=== PATIENT | male | born 1995 | race Hispanic/Latino ===

== ENCOUNTER 2018-06-03 01:50 | Emergency (ER) | payer BC ==
--- NOTE | 2018-06-03 02:21 | ER ---
Nurse's Notes [facility] Name: Lukas Lyons Age: 22 yrs Sex: Male : 1995 Arrival Date: 06/03/2018 Time: 01:55 Bed 20 Private MD: Diagnosis: Cellulitis of left upper limb Presentation: 06/03 02:07 Presenting complaint: Patient states: he woke up early this morning and noticed he had bb pain and redness to his left biceps area which is painful and warm to touch. Transition of care: patient was not received from another setting of care. Onset of symptoms was June 03, 2018. Risk Assessment: Do you want to hurt yourself or someone else? Patient reports no desire to harm self or others. Initial Sepsis Screen: Does the patient meet any 2 criteria? No. Patient's initial sepsis screen is negative. Does the patient have a suspected source of infection? No. Patient's initial sepsis screen is negative. Care prior to arrival: None. 02:07 Method Of Arrival: Ambulatory bb 02:07 Acuity: ANA 5 bb Historical: - Allergies: 02:09 Sulfa (Sulfonamide Antibiotics); bb - Home Meds: 02:09 None [Active]; bb - PMHx: 02:09 Anxiety; enlarged aorta; Hypertension; bb - PSHx: 02:09 Knee surgery; Tonsillectomy; bb - Immunization history:: Adult Immunizations up to date. - Social history:: Smoking status: Patient/guardian denies using tobacco, Patient uses alcohol, occasionally. - Ebola Screening: : No symptoms or risks identified at this time. Screenin:10 Abuse screen: Denies threats or abuse. Denies injuries from another. Nutritional cc3 screening: No deficits noted. Tuberculosis screening: No symptoms or risk factors identified. Fall Risk Ambulatory Aid- None/Bed Rest/Nurse Assist (0 pts). Gait- Normal/Bed Rest/Wheelchair (0 pts) Mental Status- Oriented to own ability (0 pts). Assessment: 02:10 General: Appears in no apparent distress. comfortable, Behavior is calm, cooperative, cc3 appropriate for age. Pain: Complains of pain in left biceps area Quality of pain is described as aching, Pain began since yesterday morning. Neuro: Level of Consciousness is awake, alert, obeys commands, Oriented to person, place, time, situation, Appropriate for age. Cardiovascular: Denies chest pain. Respiratory: Airway is patent Respiratory effort is even, unlabored, Respiratory pattern is regular, symmetrical. GI: Abdomen is round obese. : No signs and/or symptoms were reported regarding the genitourinary system. EENT: No signs and/or symptoms were reported regarding the EENT system. Derm: redness and swelling on the left biceps area. Musculoskeletal: Reports pain in left biceps area since yesterday morning. 02:35 Reassessment: Patient appears in no apparent distress at this time. Patient and/or cc3 family updated on plan of care and expected duration. Pain level reassessed. Patient is alert, oriented x 3, equal unlabored respirations, skin warm/dry/pink. Patient discharged home by Aj Salvador with prescription given. No IV cannula in situ. Patient left ER vitally stable and ambulatory with his family. Vital Signs: 02:09 BP 141 / 56; Pulse 84; Resp 16 S; Temp 99.1(O); Pulse Ox 97% on R/A; Weight 172.37 kg bb (R); Height 6 ft. 0 in. (182.88 cm) (R); Pain 3/10; 02:09 Body Mass Index 51.54 (172.37 kg, 182.88 cm) bb ED Course: 01:55 Patient arrived in ED. am2 01:58 Aj Salvador PA is PHCP. cp 01:58 Aj Holden MD is Attending Physician. cp 02:08 Triage completed. bb 02:09 Arm band placed on Patient placed in an exam room, on a stretcher, on pulse oximetry. bb Family accompanied patient. 02:10 Patient has correct armband on for positive identification. Bed in low position. Call cc3 light in reach. Side rails up X 1. 02:35 No provider procedures requiring assistance completed. Patient did not have IV access cc3 during this emergency room visit. Administered Medications: 02:28 Drug: KeFLEX 500 mg Route: PO; cc3 02:35 Follow up: Response: No adverse reaction cc3 Outcome: 02:20 Discharge ordered by . cp 02:35 Discharged to home ambulatory. cc3 02:35 Condition: stable 02:35 Discharge instructions given to patient, family, Instructed on discharge instructions, follow up and referral plans. medication usage, Demonstrated understanding of instructions, follow-up care, medications, Prescriptions given X 1. 02:37 Patient left the ED. cc3 Signatures: Dayan Bowie RN RN Aj La PA PA cp Moreno, Amanda am2 Cordel, Charlene cc3
--- NOTE | 2018-06-03 02:21 | EDPHYS ---
Physician Documentation [facility] Name: Lukas Lyons Age: 22 yrs Sex: Male : 1995 Arrival Date: 06/03/2018 Time: 01:55 Bed 20 Private MD: ED Physician Aj Holden HPI: 06/03 02:12 This 22 yrs old Male presents to ER via Ambulatory with complaints of Spider cp Bite. 02:13 The patient or guardian complains of pain, that is acute, swelling, tenderness, cp erythema. The complaints affect the medial aspect left bicep. Context: resulted from possible insect bite. Onset: The symptoms/episode began/occurred this morning. Treatment prior to arrival includes: no previous treatment. Associated signs and symptoms: Pertinent positives: erythema, warmth, Pertinent negatives: fever, drainage. Severity of symptoms: in the emergency department the symptoms are unchanged, despite home interventions. Historical: - Allergies: 02:09 Sulfa (Sulfonamide Antibiotics); bb - Home Meds: 02:09 None [Active]; bb - PMHx: 02:09 Anxiety; enlarged aorta; Hypertension; bb - PSHx: 02:09 Knee surgery; Tonsillectomy; bb - Immunization history:: Adult Immunizations up to date. - Social history:: Smoking status: Patient/guardian denies using tobacco, Patient uses alcohol, occasionally. - Ebola Screening: : No symptoms or risks identified at this time. ROS: 02:14 Eyes: Negative for injury, pain, redness, and discharge. cp 02:14 Constitutional: Negative for body aches, chills, fever, poor PO intake. 02:14 ENT: Negative for drainage from ear(s), ear pain, sore throat, difficulty swallowing, difficulty handling secretions. 02:14 Cardiovascular: Negative for chest pain, palpitations. 02:14 Respiratory: Negative for cough, shortness of breath, wheezing. 02:14 Abdomen/GI: Negative for abdominal pain. 02:14 Skin: Positive for erythema, of the medial aspect left bicep. 02:14 All other systems are negative. Exam: 02:16 Head/Face: Normocephalic, atraumatic. cp 02:16 Constitutional: The patient appears in no acute distress, alert, awake, non-toxic, well developed, well nourished, obese. 02:16 Eyes: Periorbital structures: appear normal, Conjunctiva: normal, no exudate, no injection, Lids and lashes: appear normal, bilaterally. 02:16 ENT: External ear(s): are unremarkable, Nose: is normal, Mouth: Lips: moist, Oral mucosa: moist, Posterior pharynx: Airway: no evidence of obstruction, patent. 02:16 Chest/axilla: Inspection: normal. 02:16 Cardiovascular: Rate: normal, Rhythm: regular. 02:16 Respiratory: the patient does not display signs of respiratory distress, Respirations: normal, no use of accessory muscles, no retractions, no splinting, no tachypnea, Breath sounds: are clear throughout. 02:16 Abdomen/GI: Inspection: obese 02:16 Skin: cellulitis, that is mild, well demarcated, on the medial aspect left bicep. Vital Signs: 02:09 BP 141 / 56; Pulse 84; Resp 16 S; Temp 99.1(O); Pulse Ox 97% on R/A; Weight 172.37 kg bb (R); Height 6 ft. 0 in. (182.88 cm) (R); Pain 3/10; 02:09 Body Mass Index 51.54 (172.37 kg, 182.88 cm) bb MDM: 01:58 Patient medically screened. cp 02:19 Differential diagnosis: cellulitis, abscess, insect bite. Data reviewed: vital signs, cp nurses notes, and as a result, I will discharge patient. Administered Medications: 02:28 Drug: KeFLEX 500 mg Route: PO; cc3 02:35 Follow up: Response: No adverse reaction cc3 Disposition: 06:46 Co-signature as Attending Physician, Aj Holden MD I agree with the assessment and yash plan of care. Disposition: 06/03/18 02:20 Discharged to Home. Impression: Cellulitis of left upper limb. - Condition is Stable. - Discharge Instructions: Cellulitis, Adult. - Prescriptions for Keflex 500 mg Oral Capsule - take 1 capsule by ORAL route every 6 hours for 10 days; 40 capsule. - Medication Reconciliation Form, Thank You Letter, Antibiotic Education, Prescription Opioid Use, Work release form form. - Follow up: Private Physician; When: 2 - 3 days; Reason: Recheck today's complaints. - Problem is new. - Symptoms are unchanged. Signatures: Aj Holden MD MD cha Ballard, Brenda, RN RN bb Aj Salvador PA PA cp Eden Bills cc3 Corrections: (The following items were deleted from the chart) 02:37 02:20 06/03/2018 02:20 Discharged to Home. Impression: Cellulitis of left upper limb. cc3 Condition is Stable. Forms are Medication Reconciliation Form, Thank You Letter, Antibiotic Education, Prescription Opioid Use. Follow up: Private Physician; When: 2 - 3 days; Reason: Recheck today's complaints. Problem is new. Symptoms are unchanged. cp
[2018-06-03] MEDS ORDERED: CEPHALEXIN 250 MG CAP ONE (02:32)
== END 2018-06-03 02:37 | disposition home or self-care (01) ==
LOC: ER 01:50
DX: L03.114 Cellulitis of left upper limb (principal); I10 Essential (primary) hypertension; Z88.2 Allergy status to sulfonamides
CPT/HCPCS: 99283

== ENCOUNTER 2018-10-31 15:11 | Emergency (ER) | payer BC, SELFPAY ==
[2018-10-31] MEDS ORDERED: NA CHLORIDE 0.9% 1,000 ML ONE ×2 (16:13→18:13)
[2018-10-31 16:29] LABS: Absolute Lymphocytes (CBC) 0.9 K/uL (0.7-4.9); Absolute Monocytes 0.3 K/uL (0.1-1.3); Basophils % 0.8 % (0-1.3); Eosinophils % 0.2 % (0-4.4); Hematocrit 43.5 % (39.6-49.0); Lymphocytes % 21.8 % (15.3-44.8); MPV 9.3 fL (7.6-11.3); Monocytes % 7.7 % (3.3-12.3); RBC Red Blood Cell Count 5.38 M/uL (4.33-5.43)
[2018-10-31 16:54] LABS: ALT/SGPT 159 U/L (12-78); AST/SGOT 66 U/L (15-37); Albumin 3.6 g/dL (3.4-5.0); Alkaline Phosphatase 60 U/L (45-117); BUN Blood Urea Nitrogen 10 mg/dL (7-18); Bicarbonate 26 mmol/L (21-32); Bilirubin Direct 0.3 mg/dL (0-0.2); Bilirubin Total 0.8 mg/dL (0.2-1.0); Glucose Level 118 mg/dL (74-106); Lipase 135 U/L (73-393); Potassium 3.6 mmol/L (3.5-5.1); Protein, Total 7.7 g/dL (6.4-8.2); Sodium Level 136 mmol/L (136-145)
[2018-10-31 18:30] LABS: Urine Blood NEGATIVE (NEG); Urine Glucose TRACE (NEG); Urine Protein 2+ (NEG); Urine pH 6.5 (5.0-7.0)
--- NOTE | 2018-10-31 18:54 | EDPHYS ---
Physician Documentation [facility] Name: Lukas Lyons Age: 23 yrs Sex: Male : 1995 Arrival Date: 10/31/2018 Time: 15:22 Bed 13 Private MD: ED Physician Aj Holden HPI: 10/31 16:53 This 23 yrs old Male presents to ER via Ambulatory with complaints of Vomiting.jr8 16:53 The patient presents to the emergency department with nausea, vomiting, abdominal pain. jr8 Onset: The symptoms/episode began/occurred gradually, 1 week(s) ago. Possible causes: unknown. The symptoms are aggravated by food , The symptoms are alleviated by nothing. Associated signs and symptoms: Pertinent positives: fever. Severity of symptoms: At their worst the symptoms were mild in the emergency department the symptoms are unchanged. The patient has not experienced similar symptoms in the past. The patient has not recently seen a physician. Patient stated that he has had fevers on/off for the past week or so. Turning into abdominal cramping and n/v without relief. Had sore throat a few days ago but has since gone away. Denies any other symptoms . Historical: - Allergies: 15:48 Sulfa (Sulfonamide Antibiotics); ph - PMHx: 15:48 Anxiety; enlarged aorta; Hypertension; ph - PSHx: 15:48 Knee surgery; Tonsillectomy; ph - Immunization history:: Adult Immunizations unknown. - Social history:: Smoking status: Patient/guardian denies using tobacco. - Ebola Screening: : No symptoms or risks identified at this time. ROS: 16:53 Eyes: Negative for injury, pain, redness, and discharge, ENT: Negative for injury and jr8 discharge. Positive for sore throat Neck: Negative for injury, pain, and swelling, Cardiovascular: Negative for chest pain, palpitations, and edema, Respiratory: Negative for shortness of breath, cough, wheezing, and pleuritic chest pain, Back: Negative for injury and pain, MS/Extremity: Negative for injury and deformity, Skin: Negative for injury, rash, and discoloration, Neuro: Negative for headache, weakness, numbness, tingling, and seizure. 16:53 Abdomen/GI: Positive for nausea and vomiting, diarrhea, abdominal cramps, Negative for abdominal distension, anorexia, dysphagia, hematemesis, black/tarry stool, rectal pain, rectal bleeding, bowel incontinence, flatulence. Exam: 16:53 Eyes: Pupils equal round and reactive to light, extra-ocular motions intact. Lids and jr8 lashes normal. Conjunctiva and sclera are non-icteric and not injected. Cornea within normal limits. Periorbital areas with no swelling, redness, or edema. ENT: Nares patent. No nasal discharge, no septal abnormalities noted. Tympanic membranes are normal and external auditory canals are clear. Oropharynx with no redness, swelling, or masses, exudates, or evidence of obstruction, uvula midline. Mucous membranes moist. Neck: Trachea midline, no thyromegaly or masses palpated, and no cervical lymphadenopathy. Supple, full range of motion without nuchal rigidity, or vertebral point tenderness. No Meningismus. Cardiovascular: Sinus tachycardia with a normal S1 and S2. No gallops, murmurs, or rubs. Normal PMI, no JVD. No pulse deficits. Respiratory: Lungs have equal breath sounds bilaterally, clear to auscultation and percussion. No rales, rhonchi or wheezes noted. No increased work of breathing, no retractions or nasal flaring. Abdomen/GI: Soft, non-tender, with normal bowel sounds. No distension or tympany. No guarding or rebound. No evidence of tenderness throughout. Back: No spinal tenderness. No costovertebral tenderness. Full range of motion. Skin: Warm, dry with normal turgor. Normal color with no rashes, no lesions, and no evidence of cellulitis. MS/ Extremity: Pulses equal, no cyanosis. Neurovascular intact. Full, normal range of motion. Neuro: Awake and alert, GCS 15, oriented to person, place, time, and situation. Cranial nerves II-XII grossly intact. Motor strength 5/5 in all extremities. Sensory grossly intact. Cerebellar exam normal. Normal gait. Vital Signs: 15:47 BP 122 / 89; Pulse 129; Resp 22; Temp 97.9(TE); Pulse Ox 97% on R/A; Weight 175.99 kg; ph Height 6 ft. 0 in. (182.88 cm); 16:20 BP 116 / 70; Pulse 115; Resp 17; Pulse Ox 98% on R/A; tw2 17:05 BP 129 / 69; Pulse 115; Resp 17; Pulse Ox 97% on R/A; tw2 17:57 BP 121 / 63; Pulse 118; Resp 17; Pulse Ox 97% on R/A; tw2 19:11 BP 124 / 75; Pulse 69; Resp 19; Pulse Ox 97% on R/A; tw2 15:47 Body Mass Index 52.62 (175.99 kg, 182.88 cm) ph MDM: 15:38 Patient medically screened. jr8 18:51 Data reviewed: vital signs, nurses notes, lab test result(s), radiologic studies, CT jr scan. Data interpreted: Pulse oximetry: on room air is 97 %. Interpretation: normal. Counseling: I had a detailed discussion with the patient and/or guardian regarding: the historical points, exam findings, and any diagnostic results supporting the discharge/admit diagnosis, lab results, the need for outpatient follow up, a family practitioner, to return to the emergency department if symptoms worsen or persist or if there are any questions or concerns that arise at home. Response to treatment: the patient's symptoms have markedly improved after treatment, patient is well hydrated. ED course: Reexamined patient. Patient feeling much better. Still without subjective or objective abdominal findings including pain. Will send home on antibiotics if diarrhea persists after the next couple of days. S/S given to patient to watch for. Would come back if present. 10/31 15:57 Order name: Basic Metabolic Panel [facility] 10/31 15:57 Order name: CBC with Diff [facility] 10/31 15:57 Order name: Creatinine for Radiology [facility] 10/31 15:57 Order name: Hepatic Function; Complete Time: 16:56 [facility] 10/31 15:57 Order name: Lipase; Complete Time: 16:56 [facility] 10/31 15:57 Order name: Strep; Complete Time: 16:42 [facility] 10/31 15:57 Order name: Influenza Screen (a \T\ B); Complete Time: 16:56 [facility] 10/31 15:57 Order name: Basic Metabolic Panel; Complete Time: 16:56 [facility] 10/31 15:57 Order name: CBC with Automated Diff; Complete Time: 16:42 [facility] 10/31 15:57 Order name: Creatinine (Radiology Only); Complete Time: 16:56 [facility] 10/31 16:42 Order name: Throat Culture [facility] 10/31 17:51 Order name: Urine Dipstick--Ancillary (enter results); Complete Time: 18:51 bd 10/31 15:57 Order name: IV Saline Lock; Complete Time: 16:20 8 10/31 15:57 Order name: Labs collected and sent; Complete Time: 16:20 8 10/31 15:57 Order name: Urine Dipstick-Ancillary (obtain specimen); Complete Time: 17:56 jr Administered Medications: 16:15 Drug: NS 0.9% 1000 ml Route: IV; Rate: 1000 ml; Site: left antecubital; tw2 18:00 Follow up: Response: No adverse reaction; IV Status: Completed infusion; IV Intake: tw2 1000ml 18:00 Drug: NS 0.9% 1000 ml Route: IV; Rate: 1 bolus; Site: left antecubital; tw2 19:27 Follow up: Response: No adverse reaction; IV Status: Completed infusion; IV Intake: tw2 1000ml Disposition: 10/31/18 18:53 Discharged to Home. Impression: Gastroenteritis, Dehydration. - Condition is Stable. - Discharge Instructions: Dehydration, Adult, Viral Gastroenteritis, Adult. - Prescriptions for Cipro 500 mg Oral Tablet - take 1 tablet by ORAL route every 12 hours for 10 days; 20 tablet. Flagyl 500 mg Oral Tablet - take 1 tablet by ORAL route every 6 hours for 10 days; 40 tablet. Zofran 4 mg Oral Tablet - take 1 tablet by ORAL route every 8 hours As needed; 20 tablet. - Medication Reconciliation Form, Thank You Letter, Antibiotic Education, Prescription Opioid Use, Work release form, Family Work Release form. - Follow up: Private Physician; When: 2 - 3 days; Reason: Recheck today's complaints, Continuance of care, Re-evaluation by your physician. - Problem is new. - Symptoms have improved. Signatures: Dispatcher [employer] EDMS Mohamud Austin PA PA jr8 Nuha Neal, RN RN Georgette Strong RN RN tw2 Corrections: (The following items were deleted from the chart) 19:22 18:53 10/31/2018 18:53 Discharged to Home. Impression: Gastroenteritis; Dehydration. tw2 Condition is Stable. Forms are Medication Reconciliation Form, Thank You Letter, Antibiotic Education, Prescription Opioid Use. Follow up: Private Physician; When: 2 - 3 days; Reason: Recheck today's complaints, Continuance of care, Re-evaluation by your physician. Problem is new. Symptoms have improved. jr8
--- NOTE | 2018-10-31 18:54 | ER ---
Nurse's Notes [facility] Name: Lukas Lyons Age: 23 yrs Sex: Male : 1995 Arrival Date: 10/31/2018 Time: 15:22 Bed 13 Private MD: Diagnosis: Gastroenteritis;Dehydration Presentation: 10/31 15:45 Presenting complaint: Patient states: N/V/D, fever, chills, and dizziness since Tue, ph states, " I've been trying to stay hydrated but my pee is still really dark.". Transition of care: patient was not received from another setting of care. Onset of symptoms was October 31, 2018. Risk Assessment: Do you want to hurt yourself or someone else? Patient reports no desire to harm self or others. Initial Sepsis Screen: Does the patient meet any 2 criteria? No. Patient's initial sepsis screen is negative. Does the patient have a suspected source of infection? No. Patient's initial sepsis screen is negative. Care prior to arrival: None. 15:45 Method Of Arrival: Ambulatory ph 15:45 Acuity: ANA 3 ph Historical: - Allergies: 15:48 Sulfa (Sulfonamide Antibiotics); ph - PMHx: 15:48 Anxiety; enlarged aorta; Hypertension; ph - PSHx: 15:48 Knee surgery; Tonsillectomy; ph - Immunization history:: Adult Immunizations unknown. - Social history:: Smoking status: Patient/guardian denies using tobacco. - Ebola Screening: : No symptoms or risks identified at this time. Screenin:22 Abuse screen: Denies threats or abuse. Nutritional screening: No deficits noted. tw2 Tuberculosis screening: No symptoms or risk factors identified. Fall Risk None identified. Assessment: 15:37 General: Appears in no apparent distress. obese, Behavior is calm, cooperative, tw2 appropriate for age. Pain: Complains of pain in abdomen. Neuro: Level of Consciousness is awake, alert, obeys commands, Oriented to person, place, time, situation. Cardiovascular: Heart tones S1 S2 Patient's skin is warm and dry. Respiratory: Airway is patent Respiratory effort is even, unlabored, Respiratory pattern is regular, symmetrical, Breath sounds are clear bilaterally. GI: Abdomen is round non-distended, obese, Bowel sounds present X 4 quads. Reports lower abdominal pain, upper abdominal pain. : No signs and/or symptoms were reported regarding the genitourinary system. EENT: No signs and/or symptoms were reported regarding the EENT system. EENT: No signs and/or symptoms were reported regarding the EENT system. EENT: No signs and/or symptoms were reported regarding the EENT system. Derm: No signs and/or symptoms reported regarding the dermatologic system. Musculoskeletal: Circulation, motion, and sensation intact. Range of motion: intact in all extremities. 16:20 Reassessment: Patient appears in no apparent distress at this time. No changes from tw2 previously documented assessment. Patient and/or family updated on plan of care and expected duration. Pain level reassessed. Patient is alert, oriented x 3, equal unlabored respirations, skin warm/dry/pink. 17:05 Reassessment: Patient appears in no apparent distress at this time. No changes from tw2 previously documented assessment. Patient and/or family updated on plan of care and expected duration. Pain level reassessed. Patient is alert, oriented x 3, equal unlabored respirations, skin warm/dry/pink. 17:58 Reassessment: Patient appears in no apparent distress at this time. No changes from tw2 previously documented assessment. Patient and/or family updated on plan of care and expected duration. Pain level reassessed. Patient is alert, oriented x 3, equal unlabored respirations, skin warm/dry/pink. 19:11 Reassessment: Patient appears in no apparent distress at this time. No changes from tw2 previously documented assessment. Patient and/or family updated on plan of care and expected duration. Pain level reassessed. Patient is alert, oriented x 3, equal unlabored respirations, skin warm/dry/pink. 19:22 Reassessment: Patient appears in no apparent distress at this time. No changes from tw2 previously documented assessment. Patient and/or family updated on plan of care and expected duration. Pain level reassessed. Patient is alert, oriented x 3, equal unlabored respirations, skin warm/dry/pink. Patient states feeling better. Vital Signs: 15:47 BP 122 / 89; Pulse 129; Resp 22; Temp 97.9(TE); Pulse Ox 97% on R/A; Weight 175.99 kg; ph Height 6 ft. 0 in. (182.88 cm); 16:20 BP 116 / 70; Pulse 115; Resp 17; Pulse Ox 98% on R/A; tw2 17:05 BP 129 / 69; Pulse 115; Resp 17; Pulse Ox 97% on R/A; tw2 17:57 BP 121 / 63; Pulse 118; Resp 17; Pulse Ox 97% on R/A; tw2 19:11 BP 124 / 75; Pulse 69; Resp 19; Pulse Ox 97% on R/A; tw2 15:47 Body Mass Index 52.62 (175.99 kg, 182.88 cm) ph ED Course: 15:22 Patient arrived in ED. mr 15:37 Bed in low position. Call light in reach. Side rails up X 1. Adult w/ patient. Pulse ox tw2 on. NIBP on. 15:38 Mohamud Austin PA is PHCP. jr8 15:38 Aj Holden MD is Attending Physician. jr8 15:47 Triage completed. ph 15:48 Arm band placed on. ph 15:57 Georgette Strong, RN is Primary Nurse. tw2 16:10 Inserted saline lock: 22 gauge in left antecubital area, using aseptic technique. Blood tw2 collected. 16:20 Influenza Screen (a \\T\\ B) Sent. tw2 16:20 Strep Sent. tw2 18:50 Urine collected: clean catch specimen, prosper colored. 5 19:08 Awaiting: completion of IV fluids prior to discharge. tw2 19:22 No provider procedures requiring assistance completed. IV discontinued, intact, tw2 bleeding controlled, No redness/swelling at site. Pressure dressing applied. Administered Medications: 16:15 Drug: NS 0.9% 1000 ml Route: IV; Rate: 1000 ml; Site: left antecubital; tw2 18:00 Follow up: Response: No adverse reaction; IV Status: Completed infusion; IV Intake: tw2 1000ml 18:00 Drug: NS 0.9% 1000 ml Route: IV; Rate: 1 bolus; Site: left antecubital; tw2 19:27 Follow up: Response: No adverse reaction; IV Status: Completed infusion; IV Intake: tw2 1000ml Intake: 18:00 IV: 1000ml; Total: 1000ml. tw2 19:27 IV: 1000ml; Total: 2000ml. tw2 Outcome: 18:53 Discharge ordered by . jr8 19:22 Patient left the ED. tw2 19:22 Discharged to home ambulatory, with significant other. tw2 19:22 Condition: stable 19:22 Discharge instructions given to patient, significant other, Instructed on discharge instructions, follow up and referral plans. medication usage, Demonstrated understanding of instructions, follow-up care, medications, Prescriptions given X 3. Signatures: Juventino Smitha Austin, Mohamud, NAMITA BREAUX jr8 Nuha Neal RN RN Georgette Strong RN RN 2 Carol Shen [facility] Corrections: (The following items were deleted from the chart) 06:15 NS 0.9% 1000 ml IV at 1000 ml in left antecubital tw2 tw2 : 17:56 Response: No adverse reaction; IV Status: Completed infusion; IV Intake: 1000ml tw2 tw2
== END 2018-10-31 19:22 | disposition home or self-care (01) ==
LOC: ER 15:11
DX: K52.9 Noninfective gastroenteritis and colitis, unspecified (principal); E86.0 Dehydration; I10 Essential (primary) hypertension; Z88.2 Allergy status to sulfonamides
CPT/HCPCS: 36415; 80048; 80076; 81003; 83690; 85025; 87070; 87081; 87804; 96360; 96361; 99284; J7030

== ENCOUNTER 2019-04-10 01:24 | Emergency (ER) | payer SELFPAY ==
--- NOTE | 2019-04-10 02:01 | ER ---
Nurse's Notes [facility] Name: Lukas Lyons Age: 23 yrs Sex: Male : 1995 Arrival Date: 04/10/2019 Time: 01:29 Bed 5 Private MD: Diagnosis: Person with feared health complaint in whom no diagnosis is made Presentation: 04/10 01:39 Presenting complaint: Patient states: burning sensation under left arm since noon ak1 yesterday. no redness noted during triage. Transition of care: patient was not received from another setting of care. Onset of symptoms was April 09, 2019. Risk Assessment: Do you want to hurt yourself or someone else? Patient reports no desire to harm self or others. Initial Sepsis Screen: Does the patient meet any 2 criteria? No. Patient's initial sepsis screen is negative. Does the patient have a suspected source of infection? No. Patient's initial sepsis screen is negative. Care prior to arrival: None. 01:39 Method Of Arrival: Ambulatory ak1 01:39 Acuity: ANA 4 ak1 Triage Assessment: 01:41 General: Appears in no apparent distress. Behavior is calm, cooperative. ak1 Historical: - Allergies: 01:41 Sulfa (Sulfonamide Antibiotics); ak1 - Home Meds: 01:41 None [Active]; ak1 - PMHx: 01:41 Anxiety; enlarged aorta; Hypertension; ak1 - PSHx: 01:41 Knee surgery; Tonsillectomy; ak1 - Immunization history:: Adult Immunizations unknown. - Social history:: Smoking status: Patient/guardian denies using tobacco. - Ebola Screening: : No symptoms or risks identified at this time. Screenin:41 Abuse screen: Denies threats or abuse. Denies injuries from another. Nutritional ak1 screening: No deficits noted. Tuberculosis screening: No symptoms or risk factors identified. Fall Risk None identified. Assessment: 01:52 General: Appears in no apparent distress. Pain: Denies pain. Complains of pain in left ea bicep Quality of pain is described as tingling. Neuro: Level of Consciousness is awake, alert, obeys commands, Oriented to person, place, time, situation. Cardiovascular: Patient's skin is warm and dry. Respiratory: Airway is patent Respiratory effort is even, unlabored, Respiratory pattern is regular, symmetrical. : No signs and/or symptoms were reported regarding the genitourinary system. Derm: Skin is pink, warm \T\ dry. Musculoskeletal: Circulation, motion, and sensation intact. 02:20 Reassessment: Patient and/or family updated on plan of care and expected duration. Pain ea level reassessed. Patient is alert, oriented x 3, equal unlabored respirations, skin warm/dry/pink. Discharge instruction given to patient verbalized the understanding of instruction. Left ED ambulatory with friend. Pt tolerating well. Vital Signs: 01:41 BP 170 / 99; Pulse 100; Resp 18; Temp 98.2; Pulse Ox 99% on R/A; Weight 165.56 kg (R); ak1 Height 6 ft. 0 in. (182.88 cm) (R); Pain 4/10; 01:41 Body Mass Index 49.50 (165.56 kg, 182.88 cm) ak1 ED Course: 01:29 Patient arrived in ED. ag3 01:40 Triage completed. ak1 01:41 Arm band placed on Patient placed in an exam room, on a stretcher, on pulse oximetry, ak1 Patient notified of wait time. 01:42 Patient has correct armband on for positive identification. Bed in low position. Call ak1 light in reach. Side rails up X 1. Adult w/ patient. Pulse ox on. NIBP on. 01:52 Alvina Gupta RN is Primary Nurse. ea 01:53 [facility]ude[facility]. kb 01:53 Berlin Alegre MD is Attending Physician. kb 02:20 No provider procedures requiring assistance completed. Patient did not have IV access ea during this emergency room visit. Administered Medications: No medications were administered Outcome: 02:01 Discharge ordered by . kb 02:20 Discharged to home ambulatory, with friend. ea 02:20 Condition: stable 02:20 Discharge instructions given to patient, Instructed on discharge instructions, follow up and referral plans. Demonstrated understanding of instructions, follow-up care. 02:23 Patient left the ED. ea Signatures: Gabby Bermudez FNP-C FNP-Ckb Krenek, Amber, RN RN ak Alvina Gupta RN RN Maria Isabel Staples 3
--- NOTE | 2019-04-10 02:01 | EDPHYS ---
Physician Documentation [facility] Name: Lukas Lyons Age: 23 yrs Sex: Male : 1995 Arrival Date: 04/10/2019 Time: 01:29 Bed 5 Private MD: SHANNA Physician Berlin Alegre HPI: 04/10 02:06 This 23 yrs old Male presents to ER via Ambulatory with complaints of BURNING kb SENTATION TO ARM. 02:06 The patient or guardian complains of burning pain to left bicep. The complaints affect kb the left bicep. Context: The problem was sustained at home, resulted from unknown cause. Onset: The symptoms/episode began/occurred today. Treatment prior to arrival includes: no previous treatment. Modifying factors: The symptoms are alleviated by nothing. the symptoms are aggravated by nothing. Associated signs and symptoms: The patient has no apparent associated signs or symptoms. Severity of symptoms: At their worst the symptoms were very mild, in the emergency department the symptoms are unchanged. The patient has not experienced similar symptoms in the past. The patient has not recently seen a physician. Pt reports he has a burning pain to his left bicep. Reports he has been fishing every day for the past 5 days. States his friend got the bacteria from the water so he has an infection. Pt was concerned that the burning feeling was from the bacteria. No redness, swelling, warmth, discoloration. Historical: - Allergies: 01:41 Sulfa (Sulfonamide Antibiotics); ak1 - Home Meds: 01:41 None [Active]; ak1 - PMHx: 01:41 Anxiety; enlarged aorta; Hypertension; ak1 - PSHx: 01:41 Knee surgery; Tonsillectomy; ak1 - Immunization history:: Adult Immunizations unknown. - Social history:: Smoking status: Patient/guardian denies using tobacco. - Ebola Screening: : No symptoms or risks identified at this time. ROS: 02:03 Constitutional: Negative for fever, chills, and weight loss, Cardiovascular: Negative kb for chest pain, palpitations, and edema, Respiratory: Negative for shortness of breath, cough, wheezing, and pleuritic chest pain, Abdomen/GI: Negative for abdominal pain, nausea, vomiting, diarrhea, and constipation, Skin: Negative for injury, rash, and discoloration, Neuro: Negative for headache, weakness, numbness, tingling, and seizure. 02:03 MS/extremity: Positive for burning pain to bicep. Exam: 02:03 Constitutional: This is a well developed, well nourished patient who is awake, alert, kb and in no acute distress. Head/Face: Normocephalic, atraumatic. Chest/axilla: Normal chest wall appearance and motion. Nontender with no deformity. No lesions are appreciated. Cardiovascular: Regular rate and rhythm with a normal S1 and S2. No gallops, murmurs, or rubs. Normal PMI, no JVD. No pulse deficits. Respiratory: Lungs have equal breath sounds bilaterally, clear to auscultation and percussion. No rales, rhonchi or wheezes noted. No increased work of breathing, no retractions or nasal flaring. Abdomen/GI: Soft, non-tender, with normal bowel sounds. No distension or tympany. No guarding or rebound. No evidence of tenderness throughout. Skin: Warm, dry with normal turgor. Normal color with no rashes, no lesions, and no evidence of cellulitis. MS/ Extremity: Pulses equal, no cyanosis. Neurovascular intact. Full, normal range of motion. Neuro: Awake and alert, GCS 15, oriented to person, place, time, and situation. Cranial nerves II-XII grossly intact. Motor strength 5/5 in all extremities. Sensory grossly intact. Cerebellar exam normal. Normal gait. Vital Signs: 01:41 BP 170 / 99; Pulse 100; Resp 18; Temp 98.2; Pulse Ox 99% on R/A; Weight 165.56 kg (R); ak1 Height 6 ft. 0 in. (182.88 cm) (R); Pain 4/10; 01:41 Body Mass Index 49.50 (165.56 kg, 182.88 cm) ak1 MDM: 01:54 Patient medically screened. kb 02:01 Data reviewed: vital signs, nurses notes. Data interpreted: Pulse oximetry: on room air kb is 99 %. Interpretation: normal. Counseling: I had a detailed discussion with the patient and/or guardian regarding: the historical points, exam findings, and any diagnostic results supporting the discharge/admit diagnosis, the need for outpatient follow up, a family practitioner, to return to the emergency department if symptoms worsen or persist or if there are any questions or concerns that arise at home. Administered Medications: No medications were administered Disposition: 07:13 Co-signature as Attending Physician, Berlin Alegre MD Available for consultation at ps1 all times. . Disposition: 04/10/19 02:01 Discharged to Home. Impression: Person with feared health complaint in whom no diagnosis is made. - Condition is Stable. - Discharge Instructions: Musculoskeletal Pain. - Medication Reconciliation Form, Thank You Letter, Antibiotic Education, Prescription Opioid Use form. - Follow up: Emergency Department; When: As needed; Reason: Worsening of condition. Follow up: Private Physician; When: 2 - 3 days; Reason: Recheck today's complaints, Continuance of care, Re-evaluation by your physician. Signatures: Gabby Bermudez, TONI PRASAD-Brianna Soriano, RN RN ak1 Alvina Gupta RN RN Berlin Diaz MD MD ps1 Corrections: (The following items were deleted from the chart) 02:06 02:03 MS/extremity: Positive for burning pain to tricept , finn kb 02:23 02:01 04/10/2019 02:01 Discharged to Home. Impression: Person with feared health ea complaint in whom no diagnosis is made. Condition is Stable. Forms are Medication Reconciliation Form, Thank You Letter, Antibiotic Education, Prescription Opioid Use. Follow up: Emergency Department; When: As needed; Reason: Worsening of condition. Follow up: Private Physician; When: 2 - 3 days; Reason: Recheck today's complaints, Continuance of care, Re-evaluation by your physician. kb
== END 2019-04-10 02:23 | disposition home or self-care (01) ==
LOC: ER 01:24
DX: Z71.1 Person with feared health complaint in whom no diagnosis is made (principal); R20.8 Other disturbances of skin sensation; F41.9 Anxiety disorder, unspecified; I10 Essential (primary) hypertension; Z88.2 Allergy status to sulfonamides
CPT/HCPCS: 99283

== ENCOUNTER 2019-05-07 20:49 | Emergency (ER) | payer SELFPAY ==
[2019-05-07] MEDS ORDERED: ALPRAZOLAM 1 MG TABLET ONE (22:58)
--- NOTE | 2019-05-07 23:52 | ER ---
Nurse's Notes [facility] Name: Lukas Lyons Age: 23 yrs Sex: Male : 1995 Arrival Date: 05/07/2019 Time: 20:50 Bed 18 Private MD: Diagnosis: Panic disorder [episodic paroxysmal anxiety] without agoraphobia Presentation: 05/07 21:25 Presenting complaint: Patient states: "I've been having anxiety attacks since yesterday cc3 when my pet snake and I buried it. I've been feeling sick on and off on my stomach, but right now it doesn't ache that much with NRS of 2/10". Transition of care: patient was not received from another setting of care. Onset of symptoms was May 06, 2019. Risk Assessment: Do you want to hurt yourself or someone else? Patient reports no desire to harm self or others. Initial Sepsis Screen: Does the patient meet any 2 criteria? HR > 90 bpm. Does the patient have a suspected source of infection? No. Patient's initial sepsis screen is negative. Care prior to arrival: None. 21:25 Method Of Arrival: Ambulatory cc3 21:25 Acuity: ANA 3 cc3 Triage Assessment: 21:25 General: Appears in no apparent distress. uncomfortable, Behavior is cooperative, cc3 anxious. Pain: Complains of pain in abdomen Pain does not radiate. Pain currently is 2 out of 10 on a pain scale. Quality of pain is described as aching, Pain began 1 day ago. Is intermittent. EENT: No signs and/or symptoms were reported regarding the EENT system. Neuro: Level of Consciousness is awake, alert, obeys commands, Oriented to person, place, time, situation, Appropriate for age. Cardiovascular: Denies chest pain, Capillary refill < 3 seconds Patient's skin is warm and dry. Respiratory: Airway is patent Respiratory effort is even, unlabored, Respiratory pattern is regular, symmetrical. GI: Abdomen is round obese, Bowel sounds present X 4 quads. Abd is soft and non tender X 4 quads. : No signs and/or symptoms were reported regarding the genitourinary system. Derm: Skin is intact, is healthy with good turgor, Skin is pink, warm \\T\\ dry. normal. Musculoskeletal: Circulation, motion, and sensation intact. Range of motion: intact in all extremities. Historical: - Allergies: 21:25 Sulfa (Sulfonamide Antibiotics); cc3 - Home Meds: 21:25 None [Active]; cc3 - PMHx: 21:25 Anxiety; enlarged aorta; Hypertension; cc3 - Immunization history:: Adult Immunizations up to date. - Social history:: Smoking status: Patient uses tobacco products, denies chronic smoking, but will smoke occasionally. - Ebola Screening: : No symptoms or risks identified at this time. Screenin:25 Abuse screen: Denies threats or abuse. Denies injuries from another. Nutritional cc3 screening: No deficits noted. Tuberculosis screening: No symptoms or risk factors identified. Fall Risk Ambulatory Aid- None/Bed Rest/Nurse Assist (0 pts). Gait- Normal/Bed Rest/Wheelchair (0 pts) Mental Status- Oriented to own ability (0 pts). Assessment: 21:25 General: see triage assessment. cc3 22:18 Reassessment: Patient appears in no apparent distress at this time. Patient and/or cc3 family updated on plan of care and expected duration. Pain level reassessed. Patient is alert, oriented x 3, equal unlabored respirations, skin warm/dry/pink. 23:27 Reassessment: Patient appears in no apparent distress at this time. Patient and/or cc3 family updated on plan of care and expected duration. Pain level reassessed. Patient is alert, oriented x 3, equal unlabored respirations, skin warm/dry/pink. 05/08 00:00 Reassessment: Patient appears in no apparent distress at this time. Patient and/or cc3 family updated on plan of care and expected duration. Pain level reassessed. Patient is alert, oriented x 3, equal unlabored respirations, skin warm/dry/pink. NAMITA Austin discharged the patient home with prescription given. No IV cannula in situ. Patient left ER vitally stable and ambulatory with his girlfriend. No valuables left in the patient's room. Patient denies pain at this time. Patient states feeling better. Patient states symptoms have improved. Vital Signs: 05/07 21:25 BP 167 / 95; Pulse 113; Resp 20 S; Temp 98.7(O); Pulse Ox 98% on R/A; Weight 170.1 kg cc3 (R); Height 6 ft. 0 in. (182.88 cm) (R); Pain 2/10; 22:36 BP 154 / 82; Pulse 86; Resp 20 S; Pulse Ox 100% on R/A; cc3 23:50 BP 148 / 87; Pulse 83; Resp 17 S; Pulse Ox 100% on R/A; cc3 21:25 Body Mass Index 50.86 (170.10 kg, 182.88 cm) cc3 ED Course: 20:50 Patient arrived in ED. ds1 21:25 Patient has correct armband on for positive identification. Bed in low position. Call cc3 light in reach. Side rails up X 1. Pulse ox on. NIBP on. 21:25 Arm band placed on right wrist. Patient notified of wait time. cc3 21:35 Eden Bills is Primary Nurse. cc3 21:40 Triage completed. cc3 22:26 Mohamud Austin PA is PHCP. jr8 22:26 Angel Carreon MD is Attending Physician. jr8 05/08 00:00 No provider procedures requiring assistance completed. Patient did not have IV access cc3 during this emergency room visit. Administered Medications: 05/07 22:55 Drug: XANax Tablet 1 mg Route: PO; jr8 05/08 00:00 Follow up: Response: No adverse reaction; Marked relief of symptoms cc3 Outcome: 05/07 23:51 Discharge ordered by . jr8 05/08 00:00 Discharged to home ambulatory, with girlfriend cc3 Condition: stable Discharge instructions given to patient, Instructed on discharge instructions, follow up and referral plans. medication usage, Demonstrated understanding of instructions, follow-up care, medications, Prescriptions given X 1. 00:16 Patient left the ED. cc3 Signatures: Missy Jacobson ds1 Mohamud Austin PA PA jr8 Eden Bills cc3
--- NOTE | 2019-05-07 23:53 | EDPHYS ---
Physician Documentation [facility] Name: Lukas Lyons Age: 23 yrs Sex: Male : 1995 Arrival Date: 05/07/2019 Time: 20:50 Bed 18 Private MD: ED Physician Angel Carreon HPI: 05/07 23:52 This 23 yrs old Male presents to ER via Ambulatory with complaints of Anxiety. jr8 23:52 Onset: The symptoms/episode began/occurred gradually, 2 day(s) ago. Associated signs jr8 and symptoms: Pertinent positives; abdominal pain, anxiety, nausea, decreased appetite . Severity of symptoms: At their worst the symptoms were moderate in the emergency department the symptoms have improved mildly. The patient has experienced similar episodes in the past, a few times. The patient has not recently seen a physician. Patient stated that he recently had to put one of his snakes down. Stated that he has bad general anxiety and over thinks things. Stated that the snake was sick and got some blood on him. Since then was worried that he was going to carry some communicable disease and infect everyone. Finally could not take the stress and anxiety any longer . Historical: - Allergies: 21:25 Sulfa (Sulfonamide Antibiotics); cc3 - Home Meds: 21:25 None [Active]; cc3 - PMHx: 21:25 Anxiety; enlarged aorta; Hypertension; cc3 - Immunization history:: Adult Immunizations up to date. - Social history:: Smoking status: Patient uses tobacco products, denies chronic smoking, but will smoke occasionally. - Ebola Screening: : No symptoms or risks identified at this time. ROS: 23:52 Eyes: Negative for injury, pain, redness, and discharge, ENT: Negative for injury, jr8 pain, and discharge, Neck: Negative for injury, pain, and swelling, Cardiovascular: Negative for chest pain, palpitations, and edema, Respiratory: Negative for shortness of breath, cough, wheezing, and pleuritic chest pain, Abdomen/GI: Negative for abdominal pain, nausea, vomiting, diarrhea, and constipation, Back: Negative for injury and pain, MS/Extremity: Negative for injury and deformity, Skin: Negative for injury, rash, and discoloration, Neuro: Negative for headache, weakness, numbness, tingling, and seizure. 23:52 Psych: Positive for anxiety. Exam: 23:52 Eyes: Pupils equal round and reactive to light, extra-ocular motions intact. Lids and jr8 lashes normal. Conjunctiva and sclera are non-icteric and not injected. Cornea within normal limits. Periorbital areas with no swelling, redness, or edema. ENT: Nares patent. No nasal discharge, no septal abnormalities noted. Tympanic membranes are normal and external auditory canals are clear. Oropharynx with no redness, swelling, or masses, exudates, or evidence of obstruction, uvula midline. Mucous membranes moist. Neck: Trachea midline, no thyromegaly or masses palpated, and no cervical lymphadenopathy. Supple, full range of motion without nuchal rigidity, or vertebral point tenderness. No Meningismus. Cardiovascular: Regular rate and rhythm with a normal S1 and S2. No gallops, murmurs, or rubs. Normal PMI, no JVD. No pulse deficits. Respiratory: Lungs have equal breath sounds bilaterally, clear to auscultation and percussion. No rales, rhonchi or wheezes noted. No increased work of breathing, no retractions or nasal flaring. Abdomen/GI: Soft, non-tender, with normal bowel sounds. No distension or tympany. No guarding or rebound. No evidence of tenderness throughout. Back: No spinal tenderness. No costovertebral tenderness. Full range of motion. Skin: Warm, dry with normal turgor. Normal color with no rashes, no lesions, and no evidence of cellulitis. MS/ Extremity: Pulses equal, no cyanosis. Neurovascular intact. Full, normal range of motion. Neuro: Awake and alert, GCS 15, oriented to person, place, time, and situation. Cranial nerves II-XII grossly intact. Motor strength 5/5 in all extremities. Sensory grossly intact. Cerebellar exam normal. Normal gait. Psych: Awake, alert, with orientation to person, place and time. Behavior, mood, and affect are within normal limits. Vital Signs: 21:25 BP 167 / 95; Pulse 113; Resp 20 S; Temp 98.7(O); Pulse Ox 98% on R/A; Weight 170.1 kg cc3 (R); Height 6 ft. 0 in. (182.88 cm) (R); Pain 2/10; 22:36 BP 154 / 82; Pulse 86; Resp 20 S; Pulse Ox 100% on R/A; cc3 23:50 BP 148 / 87; Pulse 83; Resp 17 S; Pulse Ox 100% on R/A; cc3 21:25 Body Mass Index 50.86 (170.10 kg, 182.88 cm) cc3 MDM: 22:27 Patient medically screened. jr8 22:50 Data reviewed: vital signs, nurses notes, and as a result, I will discharge patient. jr8 Data interpreted: Pulse oximetry: on room air is 100 %. Interpretation: normal. Counseling: I had a detailed discussion with the patient and/or guardian regarding: the historical points, exam findings, and any diagnostic results supporting the discharge/admit diagnosis, the need for outpatient follow up, a family practitioner, to return to the emergency department if symptoms worsen or persist or if there are any questions or concerns that arise at home. 23:52 ED course: Patient feeling much better. Will send home to f/u with PCP . jr8 Administered Medications: 22:55 Drug: XANax Tablet 1 mg Route: PO; 8 05/08 00:00 Follow up: Response: No adverse reaction; Marked relief of symptoms cc3 Disposition: 06:33 Co-signature as Attending Physician, Angel Carreon MD. mckenzie Disposition: 05/07/19 23:51 Discharged to Home. Impression: Panic disorder [episodic paroxysmal anxiety] without agoraphobia. - Condition is Stable. - Discharge Instructions: Panic Attacks, Generalized Anxiety Disorder. - Prescriptions for Hydroxyzine HCl 50 mg Oral Tablet - take 1 tablet by ORAL route every 8 hours As needed; 20 tablet. - Medication Reconciliation Form, Thank You Letter, Antibiotic Education, Prescription Opioid Use, Family Work Release form. - Follow up: Private Physician; When: 5 - 6 days; Reason: Recheck today's complaints, Continuance of care, Re-evaluation by your physician. - Problem is new. - Symptoms have improved. Signatures: Angel Carreon MD MD pkMohamud Baeza PA PA 8 Eden Bills cc3 Corrections: (The following items were deleted from the chart) 00:16 0902 23:51 05/07/2019 23:51 Discharged to Home. Impression: Panic disorder [episodic cc3 paroxysmal anxiety] without agoraphobia. Condition is Stable. Forms are Medication Reconciliation Form, Thank You Letter, Antibiotic Education, Prescription Opioid Use. Follow up: Private Physician; When: 5 - 6 days; Reason: Recheck today's complaints, Continuance of care, Re-evaluation by your physician. Problem is new. Symptoms have improved. jr8
== END 2019-05-08 00:16 | disposition home or self-care (01) ==
LOC: ER 20:49
DX: F41.0 Panic disorder [episodic paroxysmal anxiety] (principal); Z88.2 Allergy status to sulfonamides; Z72.0 Tobacco use
CPT/HCPCS: 99283

== ENCOUNTER 2021-12-10 23:19 | Emergency (ER) | payer SELFPAY ==
[2021-12-10] MEDS ORDERED: LIDOCAINE 1% 20 ML MDV ONE (23:39)
--- NOTE | 2021-12-11 00:13 | ER ---
Nurse's Notes [facility] Name: Lukas Lyons Age: 26 yrs Sex: Male : 1995 Arrival Date: 12/10/2021 Time: 23:24 Bed 11 Private MD: Diagnosis: Laceration without foreign body of left index finger without damage to nail Presentation: 12/10 23:41 Chief complaint: Patient states: "I was cutting a fish when I cut my hand open.". tw5 Coronavirus screen: Vaccine status: Patient reports being unvaccinated. Ebola Screen: Patient negative for fever greater than or equal to 101.5 degrees Fahrenheit, and additional compatible Ebola Virus Disease symptoms Patient denies exposure to infectious person. Patient denies travel to an Ebola-affected area in the 21 days before illness onset. Initial Sepsis Screen: Does the patient meet any 2 criteria? No. Patient's initial sepsis screen is negative. Does the patient have a suspected source of infection? No. Patient's initial sepsis screen is negative. Risk Assessment: Do you want to hurt yourself or someone else? Patient reports no desire to harm self or others. Onset of symptoms was December 10, 2021. 23:41 Method Of Arrival: Ambulatory tw5 23:41 Acuity: ANA 4 tw5 Triage Assessment: 23:42 General: Appears in no apparent distress. obese, Behavior is calm, cooperative, tw5 appropriate for age. 23:43 Pain: Complains of pain in palmar aspect of distal phalanx of right index finger and tw5 palmar aspect of middle phalanx of right index finger Pain currently is 3 out of 10 on a pain scale. Musculoskeletal: Bleeding controlled. Full range of motion. Injury Description: Laceration. Historical: - Allergies: 23:42 Sulfa (Sulfonamide Antibiotics); tw5 - PMHx: 23:42 Anxiety; enlarged aorta; Hypertension; tw5 - PSHx: 23:42 Tonsillectomy; tw5 - Immunization history:: Flu vaccine status is unknown. - Social history:: Smoking status: unknown. Screenin/08 01:05 Abuse screen: Denies threats or abuse. Denies injuries from another. Nutritional tw5 screening: No deficits noted. Tuberculosis screening: No symptoms or risk factors identified. Fall Risk None identified. Assessment: 01:05 General: Appears in no apparent distress. Behavior is calm, cooperative, appropriate tw5 for age. Vital Signs: 12/10 23:41 BP 141 / 102; Pulse 90; Resp 18; Temp 98.8; Pulse Ox 99% on R/A; Weight 172.37 kg; tw5 Height 6 ft. (182.88 cm); Pain 3/10; 23:41 Body Mass Index 51.54 (172.37 kg, 182.88 cm) tw5 ED Course: 23:24 Patient arrived in ED. kz 23:25 Austin Lagos DO is Attending Physician. ms3 23:42 Triage completed. tw5 23:43 Arm band placed on right wrist. tw5 12/11 00:12 Fransisco Matias MD is Referral Physician. ms3 00:47 Kymberly Berry is Primary Nurse. tw5 01:05 Patient has correct armband on for positive identification. tw5 01:05 No provider procedures requiring assistance completed. Patient did not have IV access tw5 during this emergency room visit. Dressings: Kerlix X 1; palmar aspect of distal phalanx of right index finger and palmar aspect of middle phalanx of right index finger. finger splint. Administered Medications: 00:45 Drug: Lidocaine (1 %) 20 ml Volume: 20 ml; Route: Infiltration; tw5 00:52 Drug: ADAcel 0.5 ml {Certified Emergency Vehicle Technician: [employer]. Exp: 11/14/2023. Lot #: [id number]. } tw5 {Note: TDVAX- spoke with provider no ADAcel brand name. .} Route: IM; Site: right deltoid; Outcome: 00:13 Discharge ordered by . ms3 01:05 Discharged to home ambulatory. tw5 01:05 Discharged to 01:05 Condition: good 01:05 Discharge instructions given to patient, Instructed on discharge instructions, follow up and referral plans. Demonstrated understanding of instructions, follow-up care. 01:05 Instructed on wound care. 01:07 Patient left the ED. tw5 Signatures: Austin Lagos DO DO Kymberly Bravo tw5 Marleni Mendoza
--- NOTE | 2021-12-11 00:14 | EDPHYS ---
Physician Documentation [facility] Name: Lukas Lyons Age: 26 yrs Sex: Male : 1995 Arrival Date: 12/10/2021 Time: 23:24 Bed 11 Private MD: ED Physician Austin Lagos HPI: 12/11 00:14 This 26 yrs old Male presents to ER via Ambulatory with complaints of Finger ms3 Injury - Left hand. 00:14 Mechanism of injury: Fillet knife. Associated injuries: The patient sustained Left ms3 index finger. Onset: The symptoms/episode began/occurred acutely, 1 hour(s) ago. 26-year-old male with a medical history of anxiety, enlarged aorta, hypertension presents for left index finger laceration that occurred while filleting fish. Patient states his pain is a 4/10 and described as stinging. Patient denies alleviating or inciting factors. Patient states he is unaware of his last tetanus vaccine.. Historical: - Allergies: 12/10 23:42 Sulfa (Sulfonamide Antibiotics); tw5 - PMHx: 23:42 Anxiety; enlarged aorta; Hypertension; tw5 - PSHx: 23:42 Tonsillectomy; tw5 - Immunization history:: Flu vaccine status is unknown. - Social history:: Smoking status: unknown. ROS: 12/11 00:14 Constitutional: Negative for fever, and chills. Cardiovascular: Negative for chest ms3 pain, and palpitations. Respiratory: Negative for shortness of breath, cough, wheezing, and pleuritic chest pain, Abdomen/GI: Negative for abdominal pain, nausea, vomiting, diarrhea, and constipation, MS/Extremity: Negative for injury and deformity, Neuro: Negative for headache, weakness, numbness, tingling. Skin: Positive for laceration(s). All other systems are negative. Exam: 00:14 Constitutional: This is a well developed, well nourished patient who is awake, alert, ms3 and in no acute distress. Head/Face: Normocephalic, atraumatic. Neck: Trachea midline, no cervical lymphadenopathy. Supple, full range of motion without nuchal rigidity, or vertebral point tenderness. No Meningismus. Chest/axilla: Normal chest wall appearance and motion. Nontender with no deformity. Cardiovascular: Regular rate and rhythm with a normal S1 and S2. No gallops, murmurs, or rubs. Normal PMI, no JVD. No pulse deficits. Respiratory: Lungs have equal breath sounds bilaterally, clear to auscultation and percussion. No rales, rhonchi or wheezes noted. No increased work of breathing, no retractions or nasal flaring. Abdomen/GI: Soft, non-tender, with normal bowel sounds. No distension or tympany. No guarding or rebound. No evidence of tenderness throughout. 00:14 Skin: injury, that can be described as Flap of left lateral index finger. Vital Signs: 12/10 23:41 BP 141 / 102; Pulse 90; Resp 18; Temp 98.8; Pulse Ox 99% on R/A; Weight 172.37 kg; tw5 Height 6 ft. (182.88 cm); Pain 3/10; 23:41 Body Mass Index 51.54 (172.37 kg, 182.88 cm) tw5 Laceration: 12/11 00:15 Wound Repair of 4cm ( 1.6in ) subcutaneous laceration to radial side proximal and mid cp phalanx left index finger. Skin/tissue flap noted.. Distal neuro/vascular/tendon intact. Anesthesia: Wound infiltrated with 4 mls of 1% lidocaine. Wound prep: Moderate cleansing by me, Wound irrigation. Skin closed with 6 4-0 Prolene using interrupted sutures and sterile technique. Dressed with Bacitracin, 4x4's. Patient tolerated well. MDM: 12/10 23:47 Patient medically screened. ms3 12/11 00:14 Differential diagnosis: finger laceration. Data reviewed: vital signs, nurses notes. ms3 Counseling: I had a detailed discussion with the patient and/or guardian regarding: the historical points, exam findings, and any diagnostic results supporting the discharge/admit diagnosis, the need for outpatient follow up. 00:14 ED course: Patient's laceration sutured and wound hemostatic. Patient to follow-up in 7 ms3 to 10 days with primary care physician to have sutures removed. Patient understands and agrees with plan. All questions were answered. Return precautions discussed include worsening symptoms, or any other concerns.. 12/11 00:08 Order name: Wound dressing; Complete Time: 00:45 cp 12/11 00:08 Order name: Finger Splint; Complete Time: 00:45 cp Administered Medications: 00:45 Drug: Lidocaine (1 %) 20 ml Volume: 20 ml; Route: Infiltration; 00:52 Drug: ADAcel 0.5 ml {[employer]: [employer]. Exp: 11/14/2023. Lot #: [id number]. } tw5 {Note: TDVAX- spoke with provider no ADAcel brand name. .} Route: IM; Site: right deltoid; Disposition: 03:17 Co-signature as Attending Physician, Austin Lagos DO. ms3 Disposition Summary: 12/11/21 00:13 Discharge Ordered Location: Home ms3 Condition: Stable ms3 Diagnosis - Laceration without foreign body of left index finger without damage to nail ms3 Followup: ms3 - With: Fransisco Matias MD - When: 10 - 14 days - Reason: Staple/Suture removal Discharge Instructions: - Discharge Summary Sheet ms3 - Laceration Care, Adult, [id number] ms3 Forms: - Medication Reconciliation Form ms3 - Thank You Letter ms3 - Antibiotic Education ms3 - Prescription Opioid Use ms3 Signatures: Aj Salvador PA PA cp Sims, Marcus, DO DO ms3 Kymberly Berry tw5
[2021-12-11] MEDS ORDERED: TETANUS & DIPHTHERIA TOX,ADULT 0.5 ML VIAL ONE (00:53)
[2021-12-11 08:25] VITALS: BP 141/102; TEMP 98.8; O2SAT 99
== END 2021-12-11 01:07 | disposition home or self-care (01) ==
LOC: ER 23:19
PROC: 0JQK0ZZ Repair Left Hand Subcutaneous Tissue and Fascia, Open Approach (ICD-10-PCS; principal; 2021-12-11)
DX: S61.211A Laceration without foreign body of left index finger without damage to nail, initial encounter (principal); W26.0XXA Contact with knife, initial encounter; I10 Essential (primary) hypertension; Z88.2 Allergy status to sulfonamides
CPT/HCPCS: 90471; 90714; 99283

== ENCOUNTER 2024-11-04 18:04 | Emergency (ER) | payer SELFPAY ==
[2024-11-04] MEDS ORDERED: dexAMETHasone 10 MG/ML VIAL ONE (19:03)
--- NOTE | 2024-11-04 19:52 | RAD REPORT ---
EXAM: CT brain without contrast HISTORY: r/o mastoiditis COMPARISON: None TECHNIQUE: Multiple contiguous axial images were obtained and a CT of the brain without contrast. Sag ittal and coronal reformats were performed. One or more of the following dose reduction techniques were used: Automated exposure control, adjust ment of the mA and/or kV according to patient size, and/or iterative reconstruction. FINDINGS: No evidence of hydrocephalus, intracranial hemorrhage, or extra-axial fluid collection. The brain is normal in morphology. No evidence of midline shift or areas of brain edema. The calvarium is intact. Mild polypoid mucosal thickening noted in the paranasal sinuses. Mastoid ai r cells appear clear. IMPRESSION: No evidence of acute intracranial abnormality. Mastoid air cells are essentially clear.
[2024-11-04] MEDS ORDERED: IBUPROFEN 400 MG TAB ONE (20:24)
[2024-11-04] MEDS ORDERED: AMOX/K CLAV 875 MG TAB ONE (20:24)
--- NOTE | 2024-11-04 20:52 | EDPHYS ---
Physician Documentation [facility] Name: Lukas Lyons Jr Age: 29 yrs Sex: Male : 1995 Arrival Date: 11/04/2024 Time: 18:04 Bed IW1 Private MD: ED Physician Chandan Clayton HPI: 11/04 18:17 This 29 yrs old Male presents to ER via Unassigned with complaints of Facial kb Swelling, Flu Symptoms. 18:17 Pt is a 29 year old male who presents for sore throat and swelling to cheeks that kb started this morning. Denies fever. Denies toothache. Reports pain with opening mouth, talking. Pain worse on the left side, just below ear. . Historical: - Allergies: 18:25 Sulfa (Sulfonamide Antibiotics); iw - PMHx: 18:25 Anxiety; enlarged aorta; Hypertension; iw - PSHx: 18:25 Tonsillectomy; iw - Immunization history:: Adult Immunizations not up to date. - Infectious Disease History:: Denies. - Social history:: Smoking status: Patient denies any tobacco usage or history of. ROS: 18:18 Constitutional: As per HPI kb Exam: 18:21 Constitutional: This is a well developed, well nourished patient who is awake, alert, kb and in no acute distress. Head/Face: Normocephalic, atraumatic. ENT: Moist Mucous membranes Cardiovascular: Regular rate Respiratory: Respirations even and unlabored. No increased work of breathing. Talking in full sentences Abdomen/GI: Soft, non-tender. No distention Skin: Warm, dry with normal turgor. Normal color. MS/ Extremity: Pulses equal, no cyanosis. Neurovascular intact. Full, normal range of motion. Neuro: Awake and alert, GCS 15, oriented to person, place, time, and situation. 18:21 Head/face: Noted is no obvious of injury or deformity except tenderness, that is moderate, of the left zygomatic area and right zygomatic area, Sinus tenderness, that is mild, is located over the right maxillary sinus and left maxillary sinus, 18:21 ENT: External ear(s): are unremarkable, Ear canal(s): are normal, TM's: erythema, that is mild, on the left, Posterior pharynx: is normal, Vital Signs: 18:25 BP 141 / 87; Pulse 83; Resp 18; Temp 97.7; Pulse Ox 99% on R/A; Weight 157.85 kg; iw Height 6 ft. 0 in. ; Pain 5/10; 20:15 BP 157 / 89; Pulse 75; Resp 18; Temp 98.3; Pulse Ox 100% ; Weight 158.3 kg; Height 6 bm8 ft. 0 in. ; Pain 5/10; 20:25 BP 136 / 84; Pulse 71; Resp 18; Temp 98.4; Pulse Ox 100% ; Pain 5/10; bm8 20:15 Body Mass Index 47.33 (158.30 kg, 182.88 cm) bm8 18:25 Pain Scale: Adult iw 20:15 Pain Scale: Adult bm8 20:25 Pain Scale: Adult bm8 [place] Coma Score: 20:17 Eye Response: spontaneous(4). Motor Response: obeys commands(6). Verbal Response: bm8 oriented(5). Total: 15. 20:25 Eye Response: spontaneous(4). Motor Response: obeys commands(6). Verbal Response: bm8 oriented(5). Total: 15. MDM: 18:12 Medical Screening Exam initiated kb 18:22 Data reviewed: vital signs, nurses notes. kb 20:51 Differential diagnosis: mastoiditis, sinusitis, otitis media, dental infection. kb Counseling: I had a detailed discussion with the patient and/or guardian regarding the historical points, exam findings, and any diagnostic results supporting the discharge/admit diagnosis, lab results, radiology results, the need for outpatient follow up, a family practitioner, to return to the emergency department if symptoms worsen or persist or if there are any questions or concerns that arise at home. 11/04 18:21 Order name: Group A Streptococcus Rapid; Complete Time: 18:57 kb 11/04 18:59 Order name: Throat Culture EDMS 11/04 18:21 Order name: CT Head Brain wo Cont; Complete Time: 19:54 kb Administered Medications: 20:25 Drug: Ibuprofen PO 800 mg PO once Route: PO; bm8 21:24 Follow up: Response: No adverse reaction bm8 20:25 Drug: Amoxicillin-Clavulanate PO 875 mg PO once Route: PO; bm8 21:24 Follow up: Response: No adverse reaction bm8 Disposition: 19:20 Co-signature as Attending Physician, Chandan Clayton MD I reviewed the patient's care rt provided by the Advanced Practice Provider and agree with the diagnosis and treatment plan. Disposition Summary: 11/04/24 20:52 Discharge Ordered Notes: Location: Home kb Condition: Stable kb Diagnosis - Acute sinusitis, unspecified kb Followup: kb - With: Emergency Department - When: As needed - Reason: Worsening of condition Followup: kb - With: Private Physician - When: 2 - 3 days - Reason: Recheck today's complaints, Continuance of care, Re-evaluation by your physician Discharge Instructions: - Discharge Summary Sheet kb - Sinusitis, Adult, [id number] kb Forms: - Medication Reconciliation Form kb - Antibiotic Education kb - Prescription Opioid Use kb - Patient Portal Instructions kb - Leadership Thank You Letter kb Prescriptions: - Augmentin 875-125 mg Oral Tablet - take 1 tablet ORAL route every 12 hours for 10 days; 20 tablet; Refills: 0, kb Product Selection Permitted Signatures: Dispatcher [employer] EDFL Gabby Bermudez, BOWLING TEACHER-C BOWLING TEACHER-Mirb Stacey Ackerman, RN RN iw Chandan Clayton MD MD rt Brent Corona, RN RN bm8 Corrections: (The following items were deleted from the chart) 18:21 18:21 Group A Streptococcus Rapid Sc+I.LAB.BRZ ordered. EDMS EDMS 18:21 18:21 Head Brain Wo Cont+[id number].RAD.BRZ ordered. EDFL EDMS 18:22 18:17 Pt is a 29 year old male who presents for sore throat and swelling to cheeks that kb started this morning. Denies fever. Denies toothache. Reports pain with opening mouth, talking. . kb
--- NOTE | 2024-11-04 20:52 | ER ---
Nurse's Notes [facility] Name: Lukas Lyons Jr Age: 29 yrs Sex: Male : 1995 Arrival Date: 11/04/2024 Time: 18:04 Bed IW1 Private MD: Diagnosis: Acute sinusitis, unspecified Presentation: 11/04 18:24 Chief complaint: Patient states: left sided jaw pain since yesterday feels tender to iw touch , also has a sore throat. Coronavirus screen: Client presents with at least one sign or symptom that may indicate coronavirus-19. Risk Assessment: Do you want to hurt yourself or someone else? Patient reports no desire to harm self or others. 18:24 Method Of Arrival: Ambulatory iw 18:25 Ebola Screen: No symptoms or risks identified at this time. Initial Sepsis Screen: Does iw the patient meet any 2 criteria? No. Patient's initial sepsis screen is negative. Does the patient have a suspected source of infection? No. Patient's initial sepsis screen is negative. Onset of symptoms was November 03, 2024. 18:25 Acuity: ANA 4 iw Triage Assessment: 20:15 General: Appears in no apparent distress. uncomfortable, Behavior is calm, cooperative, bm8 appropriate for age. Pain: Complains of pain in right zygomatic area and left zygomatic area and left maxillary sinus and right maxillary sinus Pain currently is 5 out of 10 on a pain scale. EENT: Nares with drainage noted. Neuro: No deficits noted. Level of Consciousness is awake, alert, obeys commands, Oriented to person, place, time, situation, Appropriate for age. Cardiovascular: Denies chest pain, Heart tones S1 S2 present Capillary refill < 3 seconds in bilateral fingers. Respiratory: Airway is patent Trachea midline Respiratory effort is even, unlabored, Respiratory pattern is regular, symmetrical, Breath sounds are clear bilaterally. GI: No signs and/or symptoms were reported involving the gastrointestinal system. : No signs and/or symptoms were reported regarding the genitourinary system. Derm: No signs and/or symptoms reported regarding the dermatologic system. Musculoskeletal: Range of motion: intact in all extremities, Swelling present in left maxillary sinus Reports pain in right zygomatic area and left zygomatic area and left maxillary sinus and right maxillary sinus. Historical: - Allergies: 18:25 Sulfa (Sulfonamide Antibiotics); iw - PMHx: 18:25 Anxiety; enlarged aorta; Hypertension; iw - PSHx: 18:25 Tonsillectomy; iw - Immunization history:: Adult Immunizations not up to date. - Infectious Disease History:: Denies. - Social history:: Smoking status: Patient denies any tobacco usage or history of. Screenin:17 [facility] ED Fall Risk Assessment (Adult) History of falling in the last 3 months, bm8 including since admission No falls in past 3 months (0 pts) Confusion or Disorientation No (0 pts) Intoxicated or Sedated No (0 pts) Impaired Gait No (0 pts) Mobility Assist Device Used No (0 pt) Altered Elimination No (0 pt) Score/Fall Risk Level 0 - 2 = Low Risk Oriented to surroundings, Maintained a safe environment, Educated pt \T\ family on fall prevention, incl call for assistance when getting out of bed, Assessed \T\ reinforced patient's understanding of fall precautions, Hourly rounding (assess needs \T\ fall precautionary measures) done, Used ambulatory aids as needed (educated on \T\ assisted with), Used gait belt as appropriate. Abuse screen: Denies threats or abuse. Nutritional screening: No deficits noted. Tuberculosis screening: No symptoms or risk factors identified. Assessment: 20:17 Reassessment: see triage assessment. bm8 Vital Signs: 18:25 BP 141 / 87; Pulse 83; Resp 18; Temp 97.7; Pulse Ox 99% on R/A; Weight 157.85 kg; iw Height 6 ft. 0 in. ; Pain 5/10; 20:15 BP 157 / 89; Pulse 75; Resp 18; Temp 98.3; Pulse Ox 100% ; Weight 158.3 kg; Height 6 bm8 ft. 0 in. ; Pain 5/10; 20:25 BP 136 / 84; Pulse 71; Resp 18; Temp 98.4; Pulse Ox 100% ; Pain 5/10; bm8 20:15 Body Mass Index 47.33 (158.30 kg, 182.88 cm) bm8 18:25 Pain Scale: Adult iw 20:15 Pain Scale: Adult bm8 20:25 Pain Scale: Adult bm8 [place] Coma Score: 20:17 Eye Response: spontaneous(4). Motor Response: obeys commands(6). Verbal Response: bm8 oriented(5). Total: 15. 20:25 Eye Response: spontaneous(4). Motor Response: obeys commands(6). Verbal Response: bm8 oriented(5). Total: 15. ED Course: 18:07 Patient arrived in ED. im 18:12 Gabby Bermudez FNP-C [facility]. kb 18:12 Chandan Clayton MD is Attending Physician. kb 18:25 Triage completed. iw 18:26 Arm band placed on. iw 19:48 CT Head Brain wo Cont In Process Unspecified. EDMS 20:17 Patient has correct armband on for positive identification. Provided Education on: post bm8 er care. Client placed on continuous cardiac and pulse oximetry monitoring. NIBP monitoring applied. Pulse ox on. NIBP on. 20:17 No provider procedures requiring assistance completed. Patient did not have IV access bm8 during this emergency room visit. 20:18 Brent Corona, RN is Primary Nurse. bm8 Administered Medications: 20:25 Drug: Ibuprofen PO 800 mg PO once Route: PO; bm8 21:24 Follow up: Response: No adverse reaction bm8 20:25 Drug: Amoxicillin-Clavulanate PO 875 mg PO once Route: PO; bm8 21:24 Follow up: Response: No adverse reaction bm8 Medication: 20:17 VIS not applicable for this client. bm8 Outcome: 20:52 Discharge ordered by . kb 21:24 Patient left the ED. bm8 Signatures: Dispatcher [employer] EDNC Gabby Bermudez FNP-C WOOD BUFFER-Stacey Mesa RN RN Angélica Nobles Brent Corona, RN RN bm8 Corrections: (The following items were deleted from the chart) 18:26 18:25 Pulse 83bpm; Resp 18bpm; Pulse Ox 99% RA; Temp 97.7F; 157.85 kg; Height 6 ft. 0 iw in.; BMI: 47.2; Pain 5/10, Adult; iw 20:18 20:15 Pulse 75bpm; Resp 18bpm; Pulse Ox 100%; Temp 98.3F; 158.3 kg; Height 6 ft. 0 in.; bm8 BMI: 47.3; Pain 5/10, Adult; bm8
[2024-11-04 21:36] VITALS: O2SAT 100
[2024-11-04 21:37] VITALS: BP 136/84; TEMP 98.4
== END 2024-11-04 21:24 | disposition home or self-care (01) ==
LOC: ER 18:04
DX: J01.90 Acute sinusitis, unspecified (principal)
CPT/HCPCS: 36415; 70450; 87070; 99283; J1100

== ENCOUNTER 2025-01-28 15:57 | Emergency (ER) | payer SELFPAY ==
--- NOTE | 2025-01-28 16:13 | EDPHYS ---
Physician Documentation [facility] Name: Lukas Lyons Jr Age: 29 yrs Sex: Male : 1995 Arrival Date: 01/28/2025 Time: 15:57 Bed 9 Private MD: ED Physician Austin Lagos HPI: 01/28 16:13 This 29 yrs old Male presents to ER via Unassigned with complaints of Finger dr5 laceration. 16:13 Onset: The symptoms/episode began/occurred this morning, at 07:00. Patient is a dr5 29-year-old male with no past medical history coming in with laceration to right index finger at DIP over knuckle and has not been able to lift his DIP up. Patient reports that he continue working and decided to come in to make sure that was okay. Patient reports tetanus is up-to-date. Small laceration noted over DIP of right index finger.. Historical: - Allergies: 16:16 Sulfa (Sulfonamide Antibiotics); dd2 - PMHx: 16:16 Anxiety; enlarged aorta; Hypertension; dd2 - PSHx: 16:16 Tonsillectomy; dd2 - Immunization history:: Adult Immunizations up to date, Last tetanus immunization: < 5 years ago. - Infectious Disease History:: Denies. - Social history:: Smoking status: Patient denies any tobacco usage or history of. ROS: 16:13 Constitutional: as per hpi dr5 Exam: 16:13 Constitutional: This is a well developed, well nourished patient who is awake, alert, dr5 and in no acute distress. Head/Face: Normocephalic, atraumatic. Eyes: Pupils equal round and reactive to light, extra-ocular motions intact. Lids and lashes normal. Conjunctiva and sclera are non-icteric and not injected. Cornea within normal limits. Periorbital areas with no swelling, redness, or edema. Chest/axilla: Normal chest wall appearance and motion. Nontender with no deformity. No lesions are appreciated. Cardiovascular: Regular rate and rhythm with a normal S1 and S2. Normal PMI, no JVD. No pulse deficits. Respiratory: Lungs have equal breath sounds bilaterally, clear to auscultation. No rales, rhonchi or wheezes noted. No increased work of breathing, no retractions or nasal flaring. Back: No spinal tenderness. No costovertebral tenderness. Full range of motion. Skin: Unable to extend or lift right index finger at DIP. Small laceration noted over DIP of finger across. Cap refill <2. Neuro: Awake and alert, GCS 15, oriented to person, place, time, and situation. Cranial nerves II-XII grossly intact. Motor strength 5/5 in all extremities. Sensory grossly intact. Cerebellar exam normal. Normal gait. Vital Signs: 16:13 BP 135 / 87; Pulse 85; Resp 17; Temp 98.4; Pulse Ox 100% on R/A; Weight 158.76 kg; dd2 Height 6 ft. 0 in. ; Pain 6/10; 17:57 BP 139 / 84; Pulse 83; Resp 16; Pulse Ox 100% ; dd2 16:13 Body Mass Index 47.47 (158.76 kg, 182.88 cm) dd2 16:13 Pain Scale: Adult dd2 Derry Coma Score: 16:18 Eye Response: spontaneous(4). Motor Response: obeys commands(6). Verbal Response: dd2 oriented(5). Total: 15. Procedures: 16:13 Splinting: Splint applied to right index finger using finger splint, applied by nurse. dr5 Examined by me, post splint application: neurovascular intact, 2+ distal pulses palpable, brisk capillary refill noted, Patient tolerated well. MDM: 16:00 Medical Screening Exam initiated dr5 16:13 Differential diagnosis: Laceration, Tendon Laceration, Mallet Finger. Data reviewed: dr5 vital signs, nurses notes, radiologic studies. 18:09 ED course: Initial plan was to transfer to [facility] for hand surgery. Discussed case dr5 with Dr. Kath Rutherford who wants to see patient in her office this week. Will put patient in splint, give antibiotics, give CD of x-ray, and have patient follow up with her. I gave him all her information including phone number and address to both of her clinics. All questions answered. Will cancel transfer and have patient follow up.. 01/28 16:30 Order name: Hand Left 3 View; Complete Time: 16:58 EDMS 01/28 17:18 Order name: Dressing - Wound; Complete Time: 17:51 dr5 01/28 17:18 Order name: Setup Suture Tray; Complete Time: 17:38 dr5 Administered Medications: 16:35 Drug: Boostrix Tdap IM 0.5 ml IM once; as a single dose Route: IM; Site: left deltoid; dd2 17:00 Follow up: Response: No adverse reaction dd2 16:40 Drug: Acetaminophen PO 1000 mg PO once Route: PO; dd2 17:10 Follow up: Response: No adverse reaction dd2 17:38 Drug: Lidocaine Infiltration (1 %) 5 ml 5 ml Infiltration once; to bedside {Note: dd2 administered by katie long np.} Volume: 5 ml; Route: Infiltration; Site: wound; 18:01 Follow up: Response: No adverse reaction dd2 17:57 Drug: Cephalexin PO 500 mg PO once Route: PO; dd2 18:01 Follow up: Response: Medication administered at discharge. dd2 Disposition: 16:58 I was immediately available on-site in the Emergency Department for consultation in the ms3 care of the patient. Disposition Summary: 01/28/25 17:40 Discharge Ordered Notes: Location: Home dr5 Condition: Stable(01/28/25 17:40) dr5 Diagnosis - Laceration of extensor muscle, fascia and tendon of right index finger at wrist and dr5 hand level, initial encounter(01/28/25 17:40) Followup: dr5 - With: Emergency Department - When: As needed - Reason: Worsening of condition Discharge Instructions: - Discharge Summary Sheet dr5 - Cast or Splint Care, Adult dr5 - Laceration Care, Adult dr5 Forms: - Medication Reconciliation Form dr5 - Antibiotic Education dr5 - Patient Portal Instructions dr5 - Leadership Thank You Letter dr5 Prescriptions: - Cephalexin 500 mg Oral Capsule - take 1 capsule ORAL route every 12 hours for 10 days; 20 capsule; Refills: 0, dr5 Product Selection Permitted Signatures: Dispatcher [employer] EDWV Austin Lagos DO DO ms3 ALEX MARTINEZ RN RN dd2 Katie Long, PRESCRIPTION CLERK LENSES-C PRESCRIPTION CLERK LENSES-Cdr5 Corrections: (The following items were deleted from the chart) 16:30 16:11 Hand Right 3 View+RAD.RAD.BRZ ordered. EDWV EDMS 17:06 16:13 [facility] dr5 dr5 17:06 16:13 [facility] dr5 dr5 17:06 16:13 Higher level of care dr5 dr5 17:06 16:13 Stable dr5 dr5 17:06 16:13 new dr5 dr5 17:06 16:13 are unchanged dr5 dr5 16:13 Laceration of extensor muscle, fascia and tendon of right index finger at wrist dr5 and hand level, initial encounter dr5
[2025-01-28] MEDS ORDERED: TDAP (DIPHTH,PERTUSS(ACELL),TET VAC) 0.5 ML VIAL IMVAC ONE (16:28)
[2025-01-28] MEDS ORDERED: ACETAMINOPHEN 500 MG TAB ONE (16:38)
--- NOTE | 2025-01-28 16:54 | RAD REPORT ---
Exam:Hand Left 3 View CLINICAL HISTORY: Left hand pain FINDINGS: No fracture seen Equivocal mild widening of the dorsolateral aspect of the second DIP joint. This probably is not sign ificant. However, if the patient has clinical symptoms to suggest a ligamentous/tendon injury then nonemergent MRI would be recommended.
[2025-01-28] MEDS ORDERED: LIDOCAINE 1% 20 ML MDV ONE (17:31)
--- NOTE | 2025-01-28 17:41 | ER ---
Nurse's Notes [facility] Name: Lukas Lyons Jr Age: 29 yrs Sex: Male : 1995 Arrival Date: 01/28/2025 Time: 15:57 Bed 9 Private MD: Diagnosis: Laceration of extensor muscle, fascia and tendon of right index finger at wrist and hand level, initial encounter Presentation: 01/28 16:13 Chief complaint: Patient states: WAS PLACING HIS CARVING KNIFE BACK IN THE SHEATH AND dd2 CUT TOP OF HIS LT 2ND FINGER. Coronavirus screen: At this time, the client does not indicate any symptoms associated with coronavirus-19. Ebola Screen: No symptoms or risks identified at this time. Initial Sepsis Screen: Does the patient meet any 2 criteria? No. Patient's initial sepsis screen is negative. Does the patient have a suspected source of infection? No. Patient's initial sepsis screen is negative. Risk Assessment: Do you want to hurt yourself or someone else? Patient reports no desire to harm self or others. Onset of symptoms was January 28, 2025 at 07:00. 16:13 Method Of Arrival: Ambulatory dd2 16:13 Acuity: ANA 3 dd2 Triage Assessment: 16:16 General: Appears in no apparent distress. uncomfortable, Behavior is calm, cooperative, dd2 appropriate for age. Pain: Complains of pain in dorsal aspect of distal phalanx of left index finger Pain currently is 6 out of 10 on a pain scale. EENT: No deficits noted. No signs and/or symptoms were reported regarding the EENT system. Neuro: No deficits noted. Cardiovascular: No deficits noted. Respiratory: No deficits noted. GI: No deficits noted. No signs and/or symptoms were reported involving the gastrointestinal system. : No deficits noted. No signs and/or symptoms were reported regarding the genitourinary system. Derm: Wound noted dorsal aspect of distal phalanx of left index finger Wound is LACERATION Reports pain that is 6 out of 10 on a pain scale. Musculoskeletal: Circulation, motion, and sensation intact. Range of motion: limited in DIP of left index finger. Injury Description: Laceration sustained to dorsal aspect of distal phalanx of left index finger is clean, 0.5 to 2.5 cm long, was sustained 6-12 hours ago. a small amount of bleeding noted at this time. Historical: - Allergies: 16:16 Sulfa (Sulfonamide Antibiotics); dd2 - PMHx: 16:16 Anxiety; enlarged aorta; Hypertension; dd2 - PSHx: 16:16 Tonsillectomy; dd2 - Immunization history:: Adult Immunizations up to date, Last tetanus immunization: < 5 years ago. - Infectious Disease History:: Denies. - Social history:: Smoking status: Patient denies any tobacco usage or history of. Screenin:18 [facility] ED Fall Risk Assessment (Adult) History of falling in the last 3 months, dd2 including since admission No falls in past 3 months (0 pts) Confusion or Disorientation No (0 pts) Intoxicated or Sedated No (0 pts) Impaired Gait No (0 pts) Mobility Assist Device Used No (0 pt) Altered Elimination No (0 pt) Score/Fall Risk Level 0 - 2 = Low Risk Oriented to surroundings, Maintained a safe environment, Educated pt \T\ family on fall prevention, incl call for assistance when getting out of bed, Assessed \T\ reinforced patient's understanding of fall precautions, Hourly rounding (assess needs \T\ fall precautionary measures) done. Abuse screen: Denies threats or abuse. Denies injuries from another. Nutritional screening: No deficits noted. Tuberculosis screening: No symptoms or risk factors identified. Assessment: 16:18 Reassessment: SEE TRIAGE ASSESSMENT FOR FULL ASSESSMENT. dd2 Vital Signs: 16:13 BP 135 / 87; Pulse 85; Resp 17; Temp 98.4; Pulse Ox 100% on R/A; Weight 158.76 kg; dd2 Height 6 ft. 0 in. ; Pain 6/10; 17:57 BP 139 / 84; Pulse 83; Resp 16; Pulse Ox 100% ; dd2 16:13 Body Mass Index 47.47 (158.76 kg, 182.88 cm) dd2 16:13 Pain Scale: Adult dd2 Dunia Coma Score: 16:18 Eye Response: spontaneous(4). Motor Response: obeys commands(6). Verbal Response: dd2 oriented(5). Total: 15. ED Course: 16:00 Patient arrived in ED. mr 16:00 Katie Long FNP-C [facility]. dr5 16:00 Austin Lagos DO is Attending Physician. dr5 16:13 JUAN, ALEX, RN is Primary Nurse. dd2 16:15 Triage completed. dd2 16:16 Arm band placed on right wrist. dd2 16:18 Patient has correct armband on for positive identification. Bed in low position. Call dd2 light in reach. Client placed on continuous cardiac and pulse oximetry monitoring. NIBP monitoring applied. Door closed. Noise minimized. PO fluids given. Verbal reassurance given. 16:18 Patient maintains SpO2 saturation greater than 95% on room air. Dressings: 4X4s X 1; dd2 DIP of left index finger. Aluminum finger splint applied to LT 2ND FINGER. 16:38 Hand Left 3 View In Process Unspecified. EDMS 16:50 initiated transfer with Britni at [facility]. bc6 17:00 Doc to Doc. bc6 17:57 Provided Education on: d/c and f/u education. dd2 17:57 Assist provider with laceration repair on DIP of left index finger that was between 2.6 dd2 to 7.5 cm using sutures. Set up tray. Performed by Katie MUÑOZ Dressed with 4X4s, Patient tolerated well. 17:57 Patient did not have IV access during this emergency room visit. dd2 Administered Medications: 16:35 Drug: Boostrix Tdap IM 0.5 ml IM once; as a single dose Route: IM; Site: left deltoid; dd2 17:00 Follow up: Response: No adverse reaction dd2 16:40 Drug: Acetaminophen PO 1000 mg PO once Route: PO; dd2 17:10 Follow up: Response: No adverse reaction dd2 17:38 Drug: Lidocaine Infiltration (1 %) 5 ml 5 ml Infiltration once; to bedside {Note: dd2 administered by katie long np.} Volume: 5 ml; Route: Infiltration; Site: wound; 18:01 Follow up: Response: No adverse reaction dd2 17:57 Drug: Cephalexin PO 500 mg PO once Route: PO; dd2 18:01 Follow up: Response: Medication administered at discharge. dd2 Medication: 17:57 Vaccine Information Statement (VIS) provided today. Questions and/or concerns dd2 addressed. VIS edition date: April 10, 2021. Outcome: 16:13 ER care complete, transfer ordered by . dr5 17:40 Discharge ordered by . dr5 18:01 Discharged to home ambulatory, dd2 18:01 Condition: stable 18:01 Discharge instructions given to patient, Instructed on discharge instructions, follow up and referral plans. medication usage, Demonstrated understanding of instructions, follow-up care, medications, Prescriptions given X 1, 18:40 Patient left the ED. dd2 Signatures: Dispatcher [employer] EDHI Smitha Jaurgeui, Reg Reg mr Ninoska, Brenda bc6 ALEX MARTINEZ RN RN dd2 Katie Long, DIRECTOR OF BILLING-C DIRECTOR OF BILLING-[facility] [place]5
[2025-01-28] MEDS ORDERED: CEPHALEXIN 250 MG CAP ONE (17:53)
[2025-01-28 18:44] VITALS: TEMP 98.4; O2SAT 100
[2025-01-28 18:46] VITALS: BP 139/84
== END 2025-01-28 18:40 | disposition home or self-care (01) ==
LOC: ER 15:57
DX: S66.320A Laceration of extensor muscle, fascia and tendon of right index finger at wrist and hand level, initial encounter (principal)
CPT/HCPCS: 90715; 96372; 99284; J2003